=== PATIENT | male | born 1980 | race Caucasian/White ===

== ENCOUNTER 2020-03-07 17:29 | Emergency (ER) | payer OTHER ==
[~2020-03-07] VITALS: Ht 180.3 cm; Wt 61.4 kg
[2020-03-07] MEDS ORDERED: bacitracin 15gm ointment TP ONE (17:55)
[2020-03-07] MEDS ORDERED: TETanus/Pertussis (Acell)/Diphther VAC/PF (Tdap-Adult) 0.5ml syringe IMVAC ONE (17:55)
[2020-03-07 19:19] VITALS: BP 103/65
== END 2020-03-07 19:21 | disposition home or self-care (01) ==
LOC: ER 17:29
DX: T23.002A Burn of unspecified degree of left hand, unspecified site, initial encounter (principal); T23.001A Burn of unspecified degree of right hand, unspecified site, initial encounter
CPT/HCPCS: 16020; 90471; 90715; 99283